=== PATIENT | male | born 1995 | race Caucasian/White ===

== ENCOUNTER 2019-06-26 14:04 | Emergency (ER) | payer OTHER ==
[~2019-06-26] VITALS: Ht 177.8 cm; Wt 70.3 kg
[2019-06-26 14:25] LABS: BASOPHILS % (AUTO) 0 % (0-10); EOSINOPHILS # (AUTO) 0.1 10^3/uL (0.0-0.3); EOSINOPHILS % (AUTO) 1 % (0-10); HEMATOCRIT 47 % (40-54); HEMOGLOBIN 16.8 G/DL (13.3-17.7); LYMPHOCYTES # (AUTO) 1.9 X 10^3 (1.0-4.0); LYMPHOCYTES % (AUTO) 22 % (12-44); MEAN CORPUSCULAR HEMOGLOBIN 32 PG (25-34); MEAN CORPUSCULAR HGB CONC 36 G/DL (32-36); MEAN CORPUSCULAR VOLUME 89 FL (80-99); MEAN PLATELET VOLUME 11.8 FL (7.4-10.4); MONOCYTES # (AUTO) 0.7 X 10^3 (0.0-1.0); MONOCYTES % (AUTO) 8 % (0-12); NEUTROPHILS % (AUTO) 69 % (42-75); PLATELET COUNT 224 10^3/uL (130-400); RED CELL DISTRIBUTION WIDTH 12.1 % (10.0-14.5); WHITE BLOOD COUNT 8.8 10^3/uL (4.3-11.0)
--- NOTE | 2019-06-26 14:26 | ED Respiratory ---
General Chief Complaint: Respiratory Problems Stated Complaint: SOA Nursing Triage Note: PT AMBULATE TO ROOM 05 WITHOUT DIFFICULTY WITH C/O SOA STARTING 4 DAY AGO. PT WAS SEEN AT [facility] YESTERDAY AND WAS GIVEN A "STEROID INJECTION". PT C/O RUNNY NOSE, CHEST CONGESTION, AND DRAINAGE DOWN HIS THROAT. Source: patient Exam Limitations: no limitations History of Present Illness Date Seen by Provider: Jun 26, 2019 Time Seen by Provider: 14:07 Initial Comments This 24-year-old gentleman presents to the emergency room with complaints of shortness of breath and feeling panicked. He feels like he cannot get a full breath when he tries to take a deep breath. He denies any chest pain. He denies any cough, fever, or wheezing. He was seen at [facility] and given a steroid injection. He states this helped him feel better last night but the shortness of breath returned this morning. He denies any alcohol or drug use. He does note smoke. Patient has an old inhaler which she used without benefit. Allergies and Home Medications Allergies Coded Allergies: No Known Drug Allergies (Unverified , 06/26/19) Home Medications Albuterol Sulfate 1 Puff Puff, 2 PUFF IH Q4H PRN for SHORTNESS OF BREATH 1 PUFF = 90 MCG Prescribed by: AQUILINO CASTRO on 06/26/19 1600 Patient Home Medication List Home Medication List Reviewed: Yes Review of Systems Review of Systems Constitutional: no symptoms reported EENTM: no symptoms reported Respiratory: see HPI Cardiovascular: no symptoms reported Gastrointestinal: no symptoms reported Genitourinary: no symptoms reported Musculoskeletal: no symptoms reported Skin: no symptoms reported Psychiatric/Neurological: No Symptoms Reported Hematologic/Lymphatic: No Symptoms Reported Immunological/Allergic: no symptoms reported Past Rnsvpyn-Ajvfqp-Sixyol Hx Past Med/Social Hx: Reviewed and Corrections made Patient Social History Alcohol Use: Occasionally Uses Recreational Drug Use: No Smoking Status: Never a Smoker 2nd Hand Smoke Exposure: No Recent Foreign Travel: No Contact w/Someone Who Travel: No Recent Infectious Disease Expo: No Recent Hopitalizations: No Physical Abuse: No Sexual Abuse: No Mistreated: No Fear: No Seasonal Allergies Seasonal Allergies: Yes (HAYFEVER) Past Medical History Surgeries: No Respiratory: Yes Asthma (Childhood) Cardiac: No Neurological: No Sexually Transmitted Disease: No Genitourinary: No Gastrointestinal: No Musculoskeletal: No Endocrine: No HEENT: No Loss of Vision: Denies Hearing Impairment: Denies Cancer: No Psychosocial: No Integumentary: No Blood Disorders: No Physical Exam Vital Signs - First Documented 06/26/19 14:09 Pulse 114 Resp 15 B/P (MAP) 137/91 (106) Pulse Ox 100 O2 Delivery Room Air Capillary Refill : Less Than 3 Seconds Height: 5'10.00" Weight: 155lbs. oz. 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 II-XII nml as tested, no motor/sensory deficits, alert, normal mood/affect, oriented x 3 Skin: normal color, warm/dry Progress/Results/Core Measures Suspected Sepsis Recent Fever Within 48 Hours: No Infection Criteria Present: None New/Unexplained Altered Menta: No Sepsis Screen: No Definite Risk SIRS Temperature: Pulse: 114 Respiratory Rate: 15 Laboratory Tests 06/26/19 14:19: White Blood Count 8.8 Blood Pressure 137 /91 Mean: 106 Laboratory Tests 06/26/19 14:19: Creatinine 1.01, Platelet Count 224, Total Bilirubin 0.9 Results/Orders Lab Results Laboratory Tests Test 06/26/19 14:19 Range/Units White Blood Count 8.8 4.3-11.0 10^3/uL Red Blood Count 5.28 4.35-5.85 10^6/uL Hemoglobin 16.8 13.3-17.7 G/DL Hematocrit 47 40-54 % Mean Corpuscular Volume 89 80-99 FL Mean Corpuscular Hemoglobin 32 25-34 PG Mean Corpuscular Hemoglobin Concent 36 32-36 G/DL Red Cell Distribution Width 12.1 10.0-14.5 % Platelet Count 224 130-400 10^3/uL Mean Platelet Volume 11.8 H 7.4-10.4 FL Neutrophils (%) (Auto) 69 42-75 % Lymphocytes (%) (Auto) 22 12-44 % Monocytes (%) (Auto) 8 0-12 % Eosinophils (%) (Auto) 1 0-10 % Basophils (%) (Auto) 0 0-10 % Neutrophils # (Auto) 6.0 1.8-7.8 X 10^3 Lymphocytes # (Auto) 1.9 1.0-4.0 X 10^3 Monocytes # (Auto) 0.7 0.0-1.0 X 10^3 Eosinophils # (Auto) 0.1 0.0-0.3 10^3/uL Basophils # (Auto) 0.0 0.0-0.1 10^3/uL D-Dimer 0.29 0.00-0.49 UG/ML Sodium Level 141 135-145 MMOL/L Potassium Level 3.2 L 3.6-5.0 MMOL/L Chloride Level 108 H 98-107 MMOL/L Carbon Dioxide Level 21 21-32 MMOL/L Anion Gap 12 5-14 MMOL/L Blood Urea Nitrogen 9 7-18 MG/DL Creatinine 1.01 0.60-1.30 MG/DL Estimat Glomerular Filtration Rate > 60 BUN/Creatinine Ratio 9 Glucose Level 113 H 70-105 MG/DL Calcium Level 10.1 8.5-10.1 MG/DL Corrected Calcium 8.5-10.1 MG/DL Magnesium Level 1.9 1.6-2.4 MG/DL Total Bilirubin 0.9 0.1-1.0 MG/DL Aspartate Amino Transf (AST/SGOT) 18 5-34 U/L Alanine Aminotransferase (ALT/SGPT) 18 0-55 U/L Alkaline Phosphatase 68 40-136 U/L Total Protein 8.4 H 6.4-8.2 GM/DL Albumin 4.7 H 3.2-4.5 GM/DL My Orders Orders - AQUILINO PETIT MD Cbc With Automated Diff (06/26/19 14:16) Comprehensive Metabolic Panel (06/26/19 14:16) Fibrin Degradation Products (06/26/19 14:16) Magnesium (06/26/19 14:16) Ed Iv/Invasive Line Start (06/26/19 14:16) Chest Pa/Lat (2 View) (06/26/19 14:16) Ekg Tracing (8/20/19 14:20) Lactated Ringers (Lr 1000 Ml Iv Solution (06/26/19 14:58) Albuterol/Ipra Inhalation Soln (Duoneb I (06/26/19 15:00) Svn Small Volume Nebulizer (06/26/19 14:58) Potassium Chloride (Tablet) (Klor Con Ta (06/26/19 16:00) Medications Given in ED Current Medications Medications Dose Ordered Sig/Arturo Route Start Time Stop Time Status Last Admin Dose Admin Albuterol/ Ipratropium 3 ml ONCE ONCE INH 06/26/19 15:00 06/26/19 15:01 DC 06/26/19 15:06 3 ML Lactated Ringer's 1,000 ml @ 0 mls/hr Q0M ONCE IV 06/26/19 14:58 06/26/19 15:01 DC 06/26/19 15:07 999 MLS/HR Potassium Chloride 20 meq ONCE ONCE PO 06/26/19 16:00 06/26/19 16:01 DC 06/26/19 16:02 20 MEQ Vital Signs/I&O 06/26/19 14:09 Pulse 114 Resp 15 B/P (MAP) 137/91 (106) Pulse Ox 100 O2 Delivery Room Air Capillary Refill : Less Than 3 Seconds Blood Pressure Mean: 106 Progress Note : Progress Note Initial workup was unremarkable. Trial of DuoNeb was administered which did help his shortness of breath. Patient was tachycardic and hypokalemic which prompted treatment with 1 L of LR. Potassium was further replaced with oral potassium 20 mEq. Patient was prescribed an albuterol inhaler. ECG Initial ECG Impression Date: Jun 26, 2019 Initial ECG Impression Time: 14:22 Initial ECG Rate: 106 Initial ECG Rhythm: S.Tach Initial ECG Intervals: Normal Comment Sinus tachycardia with no ST elevation or depression. No abnormal intervals or axis deviation. Diagnostic Imaging Diagonstic Imaging: Xray Plain Films/CT/US/NM/MRI: chest Comments Chest x-ray viewed by me and report reviewed. See report below: NAME: AZAM VILLAR [employer] REC#: [id number] PT STATUS: REG ER : 1995 PHYSICIAN: AQUILINO PETIT MD ADMIT DATE: 06/26/19/ER Draft Date of Exam:06/26/19 CHEST PA/LAT (2 VIEW) INDICATION: Shortness of air. TIME OF EXAM: 2:37 p.m. COMPARISON: No prior studies are available for comparison. FINDINGS: The heart size is normal. The pulmonary vascularity is unremarkable. The lungs are clear. No infiltrate, effusion or pneumothorax is detected. IMPRESSION: No acute cardiopulmonary process is detected. Dictated on workstation # [id number] Dict: 06/26/19 1438 Trans: 06/26/19 1440 [id number] Interpreted by: JAYA MARIA MD Departure Impression Primary Impression: Dyspnea Qualified Codes: R06.00 - Dyspnea, unspecified Additional Impressions: Tachycardia Hypokalemia Disposition: HOME, SELF-CARE Condition: Improved Departure-Patient Inst. Decision time for Depature: 15:55 Referrals: NO,LOCAL PHYSICIAN (PCP) Primary Care Physician Patient Instructions: Asthma, Adult (DC) Add. Discharge Instructions: Your shortness of breath may be due to asthma exacerbation, viral illness, and/or allergies. Use your inhaler as prescribed for shortness of breath. Drink plenty of clear liquids. Consider taking an allergy medication such as Claritin, Zyrtec, or their generic equivalents. Return to care or contact your doctor if you have worsening symptoms or symptoms do not improve. All discharge instructions reviewed with patient and/or family. Voiced understanding. Scripts Albuterol Sulfate (PROAIR HFA) 1 Puff Puff 2 PUFF IH Q4H PRN for SHORTNESS OF BREATH, #1 EA 1 PUFF = 90 MCG Prov: AQUILINO PETIT MD 06/26/19 AUQILINO PETIT MD Jun 26, 2019 14:26
--- NOTE | 2019-06-26 14:41 | Diagnostic Imaging Report ---
INDICATION: Shortness of air. TIME OF EXAM: 2:37 p.m. COMPARISON: No prior studies are available for comparison. FINDINGS: The heart size is normal. The pulmonary vascularity is unremarkable. The lungs are clear. No infiltrate, effusion or pneumothorax is detected. IMPRESSION: No acute cardiopulmonary process is detected. Dictated by: Dictated on workstation # [id number]
[2019-06-26 14:43] LABS: ALANINE AMINOTRANSFERASE 18 U/L (0-55); ALBUMIN 4.7 GM/DL (3.2-4.5); ALKALINE PHOSPHATASE 68 U/L (40-136); BILIRUBIN,TOTAL 0.9 MG/DL (0.1-1.0); BUN/CREATININE RATIO 9; CALCIUM 10.1 MG/DL (8.5-10.1); CARBON DIOXIDE 21 MMOL/L (21-32); CHLORIDE 108 MMOL/L (98-107); CREATININE SERUM 1.01 MG/DL (0.60-1.30); GFR ESTIMATED > 60; GLUCOSE 113 MG/DL (70-105); MAGNESIUM 1.9 MG/DL (1.6-2.4); POTASSIUM 3.2 MMOL/L (3.6-5.0); SODIUM 141 MMOL/L (135-145); TOTAL PROTEIN 8.4 GM/DL (6.4-8.2)
[2019-06-26] MEDS ORDERED: LACTATED RINGERS 1,000 ML IV ONE (14:58)
[2019-06-26] MEDS ORDERED: RT-ALBUTEROL/IPRATROPIUM 3 ML (DUONEB) VIAL INH ONE (15:00)
--- NOTE | 2019-06-26 15:00 | NUR ---
PT RESTING ON BED. MOM AT BEDSIDE. PT STATES HE IS BREATHING MUCH BETTER. PT STATES THERE IS NOTHING HE NEEDS AT THIS TIME. PT INSTRUCTED TO USE CALL LIGHT IF THERE IS ANYTHING HE NEEDS.
--- NOTE | 2019-06-26 15:47 | NUR ---
PT RESTING ON BED. PT STATES HE IS FEELING BETTER AND NEEDS NOTHING AT THIS TIME.
[2019-06-26] MEDS ORDERED: KCL 10 MEQ TAB (MICRO K) PO ONE (16:00)
[2019-06-26] MEDS ORDERED: RT-ALBUINH IH (16:00)
[2019-06-26 16:15] VITALS: BP 121/70
== END 2019-06-26 16:15 | disposition home or self-care (01) ==
LOC: EDUNIT# 14:04 → ER 14:05
DX: E87.6 Hypokalemia (principal); R06.00 Dyspnea, unspecified; R00.0 Tachycardia, unspecified; J45.909 Unspecified asthma, uncomplicated
CPT/HCPCS: 36415; 71046; 80053; 83735; 85025; 85379; 93005